=== PATIENT | male | born 1995 | race Caucasian/White ===

== ENCOUNTER 2017-01-06 14:52 | Emergency (ER) | payer SELFPAY | END 2017-01-06 17:55 | disposition home or self-care (01) | LOC: ER 14:52 | DX: K52.9 Noninfective gastroenteritis and colitis, unspecified (principal); F17.210 Nicotine dependence, cigarettes, uncomplicated | CPT/HCPCS: 36415; 80307; 96361; 96374; 96375; G0480; Q9967 ==